=== PATIENT | female | born 2000 | race Two or more races ===

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

== ENCOUNTER 2024-03-04 11:19 | Emergency (ER) | payer OTHER ==
[~2024-03-04] VITALS: Ht 160 cm; Wt 56.7 kg
[~2024-03-04 11:19] MED LIST: TUSICOF CAPLET1 EACH PO
[2024-03-04] MEDS ORDERED: NOVOLOG FL100 UNIT/1 SUBCUTANEO (11:54)
[2024-03-04] MEDS ORDERED: LANTUS SOL100 UNIT/1 SUBCUTANEO (11:54)
[2024-03-04] MEDS ORDERED: RINGERS SOLUTION,LACTATED 1,000 ML IV ONE (12:15)
[2024-03-04] MEDS ORDERED: FAMOTIDINE/PF 20 MG/2 ML VIAL IV PUSH ONE (12:15)
[2024-03-04] MEDS ORDERED: HYOSCYAMINE SULFATE 0.125 MG TAB.SUBL SL ONE (12:15)
[2024-03-04] MEDS ORDERED: HYOSCYAMINE SULFATE 0.125 MG TAB.SUBL ONE (12:17)
[2024-03-04] MEDS ORDERED: FAMOtidine 200mg/20ml VIAL ONE (12:18)
[2024-03-04 13:32] LABS: HEMATOCRIT 41.5 % (36.0-45.00); MEAN CORPUSCULAR HEMOGLOBIN 27.7 pg (27.00-32.0); MEAN CORPUSCULAR HGB CONC 33.8 g/dl (32.0-36.0); PLATELET COUNT 235 K/uL (150-450); RED BLOOD COUNT 5.06 M/uL (4.00-6.00); RED CELL DISTRIBUTION WIDTH 12.7 % (11.5-14.5)
[2024-03-04 13:47] LABS: BILIRUBIN TOTAL 0.46 mg/dL (0.3-1.2); CALCIUM 8.6 mg/dL (8.5-10.1); CREATININE SERUM 0.84 mg/dL (0.55-1.02); GFR 84.78; GLOBULINA 4.1 G/DL (2.4-3.5); POTASSIUM 4.17 mEq/L (3.5-5.1); TOTAL PROTEIN 8.1 gm/dL (6.4-8.2)
[2024-03-04 13:47] LABS: URINE APPEARANCE Clear; URINE BILIRRUBIN Negative (NEGATIVE); URINE BLOOD Negative; URINE COLOR Yellow; URINE LEUKOCYTE Negative; URINE NITRATE Negative; URINE PROTEIN Negative (NEGATIVE); URINE UROBILINOGEN 0.2 E.U./dl
[2024-03-04 13:51] LABS: URINE BACTERIA 510.2 uL (0.0-1933); URINE RBC 70.5 uL (0.0-20.8); URINE WBC 8.1 uL (0.0-23.2)
[2024-03-04 13:58] LABS: URINE GLUCOSE >=1000 MG/DL (NEGATIVE)
== END 2024-03-04 15:34 | disposition home or self-care (01) ==
LOC: ER 11:20
PROVIDERS: General Practice
DX: K52.9 Noninfective gastroenteritis and colitis, unspecified (principal); Z88.8 Allergy status to other drugs, medicaments and biological substances